=== PATIENT | female | born 1985 | race American Indian/Alaskan Native ===

== ENCOUNTER 2019-05-18 15:26 | Emergency (ER) | payer SELFPAY ==
[2019-05-18 17:19] VITALS: BP 129/69
[2019-05-18] MEDS ORDERED: methylPREDNISolone Sod Succinate 125 MG/2 ML INJ IV ONE (19:46)
[2019-05-18] MEDS ORDERED: ASPIRIN 325 MG TAB PO ONE (19:46)
[2019-05-18] MEDS ORDERED: IPRATROPIUM/ALBUTEROL SULFATE 3 ML AMPUL.NEB IH ONE (19:46)
[2019-05-18 20:32] LABS: Basophils % (Auto) 0.2 % (0.0-1.8); Eosinophils # (Auto) 0.1 K/mm3 (0.0-0.4); Eosinophils % (Auto) 0.9 % (0.0-4.3); Hematocrit 39.1 % (30.3-42.9); Hemoglobin 13.2 gm/dl (10.1-14.3); Lymphocytes # (Auto) 3.4 K/mm3 (1.2-5.4); Lymphocytes % (Auto) 44.3 % (13.4-35.0); Mean Corpuscular HGB Conc 34 % (30-34); Mean Corpuscular Volume 94 fl (79-97); Monocytes # (Auto) 0.5 K/mm3 (0.0-0.8); Monocytes % (Auto) 6.5 % (0.0-7.3); Platelet Count 232 K/mm3 (140-440); Red Blood Count 4.18 M/mm3 (3.65-5.03); Red Cell Distribution Width 14.7 % (13.2-15.2)
--- NOTE | 2019-05-18 20:45 | Emergency Department Report ---
ED Chest Pain HPI - General Chief Complaint: Chest Pain Stated Complaint: CHEST PAIN Source: patient Mode of arrival: Ambulatory Limitations: No Limitations - History of Present Illness Initial Comments: Patient is a 33-year-old -[place] female with no past medical history and a heart score of 0, and is PERC negative per Wells criteria who presents to the ED with midsternal chest pain that radiates to the mid posterior thoracic area for the last 12 hours, stating that the pain gets worse with any movement, palpation of the chest wall or deep inhalation. Patient states that her symptoms began after she went to the gymnasium and performed strenuous physical exercises 4 days ago. Patient denies dizziness, fall, traumatic injury, nausea, vomiting, abdominal pain, dizziness, cough, abdominal pain, diarrhea, fever, chills, sore throat, headache, nasal and sinus congestion. MD Complaint: chest pain (midsternal), other (Midsternal chest pain that radiates to the mid back, worse with any movement) -: Sudden, hour(s) (12) Onset: during exertion, awoke with symptoms Pain Location: substernal Pain Radiation: back Severity: severe Severity scale (0 -10): 7 Quality: tightness, aching, sharp, pressure Consistency: constant Improves With: nothing Worsens With: exertion, inspiration, palpation, movement re: denies: nausea, vomting, diaphoresis, dyspnea, sense of impending doom Other Symptoms: denies: cough, fever, syncope, rash, acid taste in mouth, leg swelling, palpitations, burping, other Treatments Prior to Arrival: none Aspirin use within the Past 7 Days: (0) No - Related Data On Oral Contraceptives: No Previous Rx's Medication Instructions Recorded Last Taken Type Cyclobenzaprine [Flexeril] 10 mg PO Q8H PRN #21 tablet 05/18/19 Unknown Rx Famotidine [Pepcid] 20 mg PO Q12H #30 tablet 05/18/19 Unknown Rx Naproxen 500 mg PO Q12H PRN #24 tablet 05/18/19 Unknown Rx Allergies Allergy/AdvReac Type Severity Reaction Status Date / Time No Known Allergies Allergy Unverified 05/18/19 15:30 Heart Score - HEART Score History: Slightly suspicious EKG: Normal Age: < 45 Risk factors: No known risk factors Troponin: < normal limit HEART Score: 0 - Critical Actions Critical Actions: 0-3 pts:0.9-1.7%risk of adverse cardiac event.Candidate for discharge ED Review of Systems ROS: Stated complaint: CHEST PAIN Other details as noted in HPI Constitutional: denies: chills, fever Eyes: denies: eye pain, eye discharge, vision change ENT: denies: ear pain, throat pain Respiratory: denies: cough, shortness of breath, SOB with exertion, SOB at rest, wheezing Cardiovascular: chest pain (midsternal chest wall pain). denies: palpitations, dyspnea on exertion, syncope, paroxysmal nocturnal dyspnea Endocrine: no symptoms reported Gastrointestinal: denies: abdominal pain, nausea, diarrhea Genitourinary: denies: urgency, dysuria, discharge Musculoskeletal: back pain (mid posterior thoracic pain). denies: joint swelling, arthralgia Skin: denies: rash, lesions Neurological: denies: headache, weakness, paresthesias Psychiatric: denies: anxiety, depression Hematological/Lymphatic: denies: easy bleeding, easy bruising ED Past Medical Hx - Past Medical History Previous Medical History?: No - Surgical History Past Surgical History?: No - Social History Smoking Status: Never Smoker Substance Use Type: Marijuana - Medications Home Medications: Home Medications Medication Instructions Recorded Confirmed Last Taken Type Cyclobenzaprine [Flexeril] 10 mg PO Q8H PRN #21 tablet 05/18/19 Unknown Rx Famotidine [Pepcid] 20 mg PO Q12H #30 tablet 05/18/19 Unknown Rx Naproxen 500 mg PO Q12H PRN #24 tablet 05/18/19 Unknown Rx ED Physical Exam - General Limitations: No Limitations General appearance: alert, in no apparent distress - Head Head exam: Present: atraumatic, normocephalic, normal inspection - Eye Eye exam: Present: normal appearance, PERRL, EOMI Pupils: Present: normal accommodation - ENT ENT exam: Present: normal exam, normal orophraynx, mucous membranes moist, TM's normal bilaterally, normal external ear exam - Neck Neck exam: Present: normal inspection. Absent: tenderness, lymphadenopathy - Respiratory Respiratory exam: Present: normal lung sounds bilaterally, chest wall tenderness (palpable reproducible midsternal and substernal tenderness). Absent: respiratory distress, wheezes, rales, rhonchi, accessory muscle use, decreased breath sounds, prolonged expiratory - Cardiovascular Cardiovascular Exam: Present: regular rate, normal rhythm, normal heart sounds. Absent: bradycardia, irregular rhythm, systolic murmur, diastolic murmur, rubs, gallop - GI/Abdominal GI/Abdominal exam: Present: soft, normal bowel sounds. Absent: distended, tenderness, guarding, rebound, hyperactive bowel sounds, hypoactive bowel sounds, organomegaly - Extremities Exam Extremities exam: Present: normal inspection, full ROM, normal capillary refill - Back Exam Back exam: Present: normal inspection, full ROM, tenderness (Palpable mid posterior thoracic tenderness), muscle spasm, paraspinal tenderness - Neurological Exam Neurological exam: Present: alert, oriented X3, CN II-XII intact, normal gait, reflexes normal - Psychiatric Psychiatric exam: Present: normal affect, normal mood - Skin Skin exam: Present: warm, dry, intact, normal color. Absent: rash ED Course Vital Signs 05/18/19 17:17 Temperature 99 F Pulse Rate 96 H Respiratory 18 Rate Blood Pressure 129/69 O2 Sat by Pulse 99 Oximetry JEANNIE score - Jeannie Score Age > 65: (0) No Aspirin use within the Past 7 Days: (0) No 3 or more CAD Risk Factors: (0) No 2 or more Angina events in past 24 hrs: (0) No Known CAD with more than 50% Stenosis: (0) No Elevated Cardiac Markers: (0) No ST Deviation Greater than 0.5mm: (0) No JEANNIE Score: 0 ED Medical Decision Making - Lab Data Result diagrams: 05/18/19 20:15 05/18/19 20:15 - EKG Data EKG shows normal: sinus rhythm Rate: normal - EKG Data Interpretation: normal EKG 05/18/19 22:19 The EKG shows normal sinus rhythm with a ventricular rate of 71 bpm, no ST or T wave abnormalities. - Radiology Data Radiology results: report reviewed, image reviewed Chest x-ray shows no acute cardiopulmonary abnormalities or pneumonitis, pleural effusion or pneumothorax - Medical Decision Making This is a 33-year-old -[place] female with no past medical history and a heart score of 0, and is PERC negative per Wells criteria who presents to the ED with midsternal chest pain that radiates to the mid posterior thoracic area for the last 12 hours, stating that the pain gets worse with any movement, pa lpation of the chest wall or deep inhalation. In the ED, patient is alert and oriented x3 and is not in distress with normal vital signs. Chest x-ray shows no acute cardiopulmonary abnormalities or pneumonitis. The EKG shows normal sinus rhythm with a ventricular rate of [address] or T wave abnormalities. Lab test results were reviewed and are all nonactionable including troponin levels and d-dimer levels. Patient was treated initially in the ED for pain and on reevaluation, patient's pain is well controlled with medications. Other differential diagnoses were considered including pneumonia, PE, coronary artery disease, muscle strain, GERD, rib fracture or neoplasm. Patient was discharged home on anti-inflammatory pain medications and a muscle relaxant, as well as antacid and was advised to follow-up with her primary care physician in 5 to 7 days for reevaluation or return to the ED immediately if symptoms get worse. - Differential Diagnosis CAD; PE; Pneumonia, Muscle strain; GERD; Costochondritis Critical care attestation.: If time is entered above; I have spent that time in minutes in the direct care of this critically ill patient, excluding procedure time. ED Disposition Clinical Impression: Acute costochondritis, Muscle strain of anterior chest wall, Acute nonspecific chest pain with low risk of coronary artery disease GERD (gastroesophageal reflux disease) Qualifiers: Esophagitis presence: without esophagitis Qualified Code(s): K21.9 - Gastro- esophageal reflux disease without esophagitis Disposition: DC-01 TO HOME OR SELFCARE Is pt being admited?: No Does the pt Need Aspirin: No Condition: Stable Instructions: Chest Pain (ED), Muscle Strain (ED), Costochondritis (ED), Musculoskeletal Pain (ED), Thoracic Pain (ED), Gastroesophageal Reflux Disease (ED) Additional Instructions: All your test results are unremarkable and it is unlikely that you are having any cardiac event or abnormality with the symptoms. Therefore take pain medications and muscle relaxants as advised with food, follow-up with your primary care physician in 5 to 7 days for reevaluation or return to the ED immediately if symptoms get worse. Prescriptions: Cyclobenzaprine [Flexeril] 10 mg PO Q8H PRN #21 tablet PRN Reason: Muscle Spasm Naproxen 500 mg PO Q12H PRN #24 tablet PRN Reason: Pain , Severe (7-10) Famotidine [Pepcid] 20 mg PO Q12H #30 tablet Referrals: [facility] [Outside] - 3-5 Days Time of Disposition: 20:50 Print Language: AMHARIC
[2019-05-18 20:55] LABS: Bilirubin,Urine NEG (Negative); Blood,Urine NEG (Negative); Color,Urine Yellow (Yellow); Mucus,Urine FEW /HPF; Urobilinogen,Urine < 2.0 mg/dL (<2.0)
[2019-05-18 20:59] LABS: Alanine Aminotransferase 15 units/L (7-56); Albumin 4.4 g/dL (3.9-5); BUN/Creatinine Ratio 17; Blood Urea Nitrogen 12 mg/dL (7-17); Calcium 9.1 mg/dL (8.4-10.2); Hemolysis Index 3
--- NOTE | 2019-05-18 21:42 | XRay Report ---
CHEST 2 VIEWS INDICATION / CLINICAL INFORMATION: MAIN: CHEST PAIN; Pt. presents with c/o midsternal chest pain with radiation to back that is aggravat ed by movement. Pt. states pain began this morning. ; HX OF SMOKING. COMPARISON: None available. FINDINGS: SUPPORT DEVICES: None. HEART / MEDIASTINUM: No significant abnormality. LUNGS / PLEURA: No significant pulmonary or pleural abnormality. No pneumothorax. ADDITIONAL FINDINGS: No significant additional findings. IMPRESSION: 1. No acute findings. Signer Name: Archana Chapa MD Signed: 05/18/2019 9:38 PM Workstation Name: [id number]
== END 2019-05-18 23:02 | disposition home or self-care (01) ==
LOC: ED 15:26
DX: S29.011A Strain of muscle and tendon of front wall of thorax, initial encounter (principal); F12.90 Cannabis use, unspecified, uncomplicated; K21.9 Gastro-esophageal reflux disease without esophagitis; M94.0 Chondrocostal junction syndrome [Tietze]; Z79.899 Other long term (current) drug therapy; X58.XXXA Exposure to other specified factors, initial encounter; Y93.89 Activity, other specified; Y92.89 Other specified places as the place of occurrence of the external cause; Y99.8 Other external cause status
CPT/HCPCS: 36415; 71046; 80053; 81001; 84484; 84703; 85025; 85379; 93005; 93010; 94640; 96374; 99284; J2930